=== PATIENT | female | born 1955 | race Caucasian/White ===

== ENCOUNTER → 2018-09-01 11:57 | Outpatient (CLI) | payer OTHER | END | disposition home or self-care (01) | LOC: D.US 11:57 | DX: I12.9 Hypertensive chronic kidney disease with stage 1 through stage 4 chronic kidney disease, or unspecified chronic kidney disease (principal); N18.2 Chronic kidney disease, stage 2 (mild); E11.9 Type 2 diabetes mellitus without complications; R80.9 Proteinuria, unspecified; Z68.37 Body mass index [BMI] 37.0-37.9, adult ==

== ENCOUNTER 2019-07-07 15:00 | Outpatient (CLI) | payer MEDICARE | END 2019-07-07 15:30 | disposition home or self-care (01) | LOC: D.MAMMO 15:00 | PROVIDERS: ATTEND Family Medicine | DX: Z12.31 Encounter for screening mammogram for malignant neoplasm of breast (principal) ==

== ENCOUNTER → 2019-09-23 08:30 | Outpatient (CLI) | payer MEDICARE ==
--- NOTE | 2019-09-23 09:39 | NUR ---
TIME OUT PERFORMED @ [address] FORRESTER & AMPARO KELLY RTR. PATIENT, , & PROCEDURE VERIFIED
== END | disposition home or self-care (01) ==
LOC: D.RAD 08:30 → D.MRI 10:00
PROVIDERS: ATTEND Clinical Nurse Specialist Family Health
DX: M25.511 Pain in right shoulder (principal)

== ENCOUNTER → 2019-09-28 16:43 | Outpatient (CLI) | payer MEDICARE | END | disposition home or self-care (01) | LOC: D.LABREF 16:43 | PROVIDERS: ATTEND Orthopaedic Surgery | DX: M19.011 Primary osteoarthritis, right shoulder (principal); A49.02 Methicillin resistant Staphylococcus aureus infection, unspecified site ==

== ENCOUNTER 2019-09-30 15:11 | Inpatient (IN) | payer MEDICARE ==
[~2019-09-30] VITALS: Ht 152.4 cm; Wt 76.8 kg
[2019-10-22 10:44] LABS: BASOPHILS 0.4 % (0-2); EOSINOPHILS 2.5 % (0-7); HEMOGLOBIN 15.6 g/dL (12-16); IMMATURE GRANULOCYTES 0.2 % (0-5); LYMPHOCYTES 31.8 % (15-50); MCH 31.1 pg (26.0-34.0); MCHC 33.9 g/dL (31.0-37.0); MCV 91.6 fL (80.0-100.0); MEAN PLATELET VOLUME 10.4 fL (7.4-10.4); MONOCYTES 8.4 % (2-11); NEUTROPHILS 56.7 % (40-80); PLATELET COUNT 312 10x3/uL (130-400); RBC 5.02 10x6/uL (4.00-5.40); RDW 12.9 % (11.5-14.5); WBC 8.5 10x3/uL (4.8-10.8)
[2019-10-22 10:46] LABS: ANION GAP 10.8 mmol/L (8-16); CALCIUM 9.1 mg/dL (8.5-10.1); CARBON DIOXIDE 32.1 mmol/L (21.0-32.0); CREATININE - SERUM 0.9 mg/dL (0.6-1.3); POTASSIUM - SERUM 3.9 mmol/L (3.5-5.1)
[2019-10-22 10:47] LABS: APTT 23.8 SECONDS (22.8-39.4); INR 0.91 (0.85-1.17); PROTIME 12.2 SECONDS (11.6-15.0)
[2019-10-22 11:43] LABS: APPEARANCE CLEAR (CLEAR); BILIRUBIN NEGATIVE (NEGATIVE); COLOR YELLOW (YELLOW); GLUCOSE 1000 mg/dL (NEGATIVE); KETONE NEGATIVE (NEGATIVE); NITRITE NEGATIVE (NEGATIVE); PROTEIN NEGATIVE (NEGATIVE); SPECIFIC GRAVITY 1.015 (1.005-1.020); UROBILINOGEN NORMAL (NORMAL); WHITE CELLS - URINE OCC /hpf (NEGATIVE)
[2019-10-22 11:44] LABS: BACTERIA FEW /hpf (NEGATIVE); EPITHELIAL CELLS OCC /hpf (0-5)
[2019-10-22] MEDS ORDERED: ULTRAM50 MG (12:06)
[2019-10-22] MEDS ORDERED: FLUTICASONE PRO16 GM (12:07)
[2019-10-22] MEDS ORDERED: GLUCOPHAGE1000 MG PO (12:08)
[2019-10-22] MEDS ORDERED: CYCLOBENZAPRINE5 MG (12:08)
[2019-10-22] MEDS ORDERED: SINGULAIR5 MG (12:08)
[2019-10-22] MEDS ORDERED: HYDROCHLOROTHIA25 MG (12:09)
[2019-10-22] MEDS ORDERED: PROAIR INHALER (12:10)
[2019-10-22] MEDS ORDERED: PROBIOTIC BLEN1 EACH (12:10)
[2019-10-22] MEDS ORDERED: [UNRECOGNIZED DRUG - OTHER] (12:12)
[2019-10-22] MEDS ORDERED: [UNRECOGNIZED DRUG - OTHER] (12:13)
[2019-10-22] MEDS ORDERED: [UNRECOGNIZED DRUG - OTHER] (12:13)
[2019-10-22] MEDS ORDERED: [UNRECOGNIZED DRUG - OTHER] (12:14)
[2019-10-22] MEDS ORDERED: MAGNESIUM (12:16)
[2019-10-22] MEDS ORDERED: VITAMIN D31000 UNIT (12:17)
[2019-10-22] MEDS ORDERED: AZELASTINE (12:18)
[2019-10-22] MEDS ORDERED: THYROID SUPPORT (12:18)
[2019-10-22] MEDS ORDERED: ADVANCED JOINT (12:19)
[2019-10-22] MEDS ORDERED: [UNRECOGNIZED DRUG - OTHER] (12:21)
[2019-10-22] MEDS ORDERED: [UNRECOGNIZED DRUG - OTHER] (12:22)
[2019-10-26] VITALS (12 sets, daily range): BP systolic 121–176; BP diastolic 62–88; Ht 152.4 cm; Wt 76.8 kg
[2019-10-26] MEDS ORDERED: FARXIGA10 MG PO (08:29)
[2019-10-26] MEDS ORDERED: ARTHROTEC EC 71 EACH PO (08:34)
--- NOTE | 2019-10-26 19:15 | NUR ---
BEDSIDE REPORT RECEIVED. PATIENT ALERT AND ORIENTED. HOB ELEVATED TO 30 DEGREE ANGLE. RIGHT ARM IN SLING WITH DRESSING TO THE RIGHT SHOULDER THAT IS CLEAN DRY AND INTACT. PATIENT CAN MOVE FINGERS. RIGHT HAND DIGITS ARM WARM AND CAPILLARY REFILL ARE LESS THAN THREE SECONDS. PATIENT DENIES PAIN AT THIS TIME. HAS LEFT HAND IV THAT IS INFUSING 1/2 NS @ 75. SPOKE WITH PATIENT ABOUT PLAN OF CARE DURING SHIFT. PATIENT VERBALIZES UNDERSTANDING. DENIES FURTHER NEEDS. HAS CALL LIGHT IN REACH. CPOC.
--- NOTE | 2019-10-26 21:50 | NUR ---
REQUESTS PRN PAIN MEDICINE WITH HS MEDICATIONS FOR PAIN IN RIGHT SHOULDER. PATIENT RATES 5/10 AT THIS TIME. CPOC.
[2019-10-27 00:30] VITALS: BP 140/67
--- NOTE | 2019-10-27 01:00 | NUR ---
MEDICATED PATIENT WITH TORADOL IV PER ORDER FOR PAIN RATING OF 6/10. PATIENT DENIES FURTHER NEEDS AT THIS TIME. CPOC.
[2019-10-27 05:30] VITALS: BP 152/77
--- NOTE | 2019-10-27 05:46 | NUR ---
ADMINISTERING PRN NORCO TO PATIENT. PILL BROKE WHILE OPENING AND HALF FELL ON FLOOR. CALLED ANAY MERLOS IN ROOM AND SHOWED HER AND WASTED IN THE SHARPS CONTAINER IN PATIENT ROOM. THEN WASTED IN PYXIS APPROPRIATELY BEFORE PULLING NEW DOSE. PATIENT TOOK AND TOLERATED WELL. NO FURTHER NEEDS AT THIS TIME. CPOC.
[2019-10-27 06:08] LABS: HEMATOCRIT 38.7 % (36.0-48.0); HEMOGLOBIN 12.4 g/dL (12-16); MCH 29.7 pg (26.0-34.0); MCV 92.6 fL (80.0-100.0); MEAN PLATELET VOLUME 10.7 fL (7.4-10.4); RBC 4.18 10x6/uL (4.00-5.40); RDW 13.2 % (11.5-14.5); WBC 9.6 10x3/uL (4.8-10.8)
--- NOTE | 2019-10-27 06:19 | NUR ---
I have reviewed this patient and I concur with the Shift Assessment completed by the Licensed Practical Nurse today this shift.
[2019-10-27] MEDS ORDERED: HYDROCODON-ACE1 EA10 PO (08:38)
[2019-10-27 09:23] VITALS: BP 132/73
--- NOTE | 2019-10-27 10:52 | NUR ---
PATIENT RECIEVED DC ORDERS AND PRESCRIPTION. VERBALIZED UNDERSTANDING. DRESSING CHANGED TO RIGH SHOULDER AND INCISION CDI WITH YANIV. NO DRAINAGE AT THIS TIME. EXTRA DRESSING GIVEN PER ORDERS TO CHANGE IN 7 DAYS. NO QUESTIONS AT THIS TIME. IV REMOVED WITH CATH TIP INTACT. CALL LIGHT WITHIN REACH. WAITING FOR WC FOR DC.
--- NOTE | 2019-10-28 17:54 | OP ---
PATIENT NAME: MILO LANDRUM MEDICAL RECORD: [id number] :53 LOCATION:[id number] ADMISSION DATE:10/26/19 SURGEON: ASH BLAKE MD DATE OF OPERATION: 10/26/2019 PREOPERATIVE DIAGNOSIS: Chronic rotator cuff arthropathy of the right shoulder. POSTOPERATIVE DIAGNOSIS: Chronic rotator cuff arthropathy of the right shoulder. PROCEDURE: Reverse total shoulder arthroplasty of the right shoulder. SURGEON: Ash Blake MD DATABASE COORDINATOR: NERY Moreno INTRAOPERATIVE COMPLICATIONS: None. 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 IMPLANTS USED: Tornier reverse total shoulder arthroplasty system with a standard glenosphere standard baseplate 25 mm, glenosphere 36-mm, standard PTC humeral stem size 4B with 135 angle, short stem reverse tray standard as well as a 36 x 6 mm insert from the Tornier system. ESTIMATED BLOOD LOSS: 50 cc. INTRAOPERATIVE COMPLICATIONS: None. OPERATIVE SUMMARY IN DETAIL: After obtaining the appropriate preoperative orthopedic surgery consent as well as anesthetic consent, the patient was brought to the operating room and placed on table in supine position. After general laryngeal mask airway was administered, the patient was placed in the beach chair position. All pressure points were well padded. She was held firmly to the arm to the operating table using the vacuum pack suction system. The shoulder and head were positioned for ultimate protection as always. At this point, the appropriate timeout was done. Right upper extremity was then prepped and draped in routine sterile fashion. The arm was held in Arthrex Trimano arm holding device. Deltopectoral incision was taken down to the clavipectoral fascia. The cephalic vein was identified and protected through the case. Clavipectoral fascia was incised. Conjoined tendon was retracted gently as the deltoid was retracted laterally with a brown retractor. Subscapularis was taken off the rotator cuff tearing as above was noted. The humeral head was then dislocated into the incision. Having completed this, the humeral head was cut using the humeral head cutting guide from the Tornier reverse total shoulder system. Serial and sequential reaming and broaching were done for a stem size 4. Stem was put into place. With the proximal humeral cut guide screwed into place, attention was then turned to the glenoid. With full exposure of the glenoid, circumferential labrectomy was followed by placing the guide pin. This was then followed by reaming and preparation for the baseplate. Appropriate measurements were taken and a size 30 central screw was then secured and the baseplate was then secured nicely with excellent fit and fill. Peripheral screws were used using compression and locking screws. The OPERATIVE REPORT [id number] MILO LANDRUM peripheral clear out tool was then utilized and the glenosphere was put into place on the Lopes taper. It was tamped gently. Screwed tamped and screwed. It was in excellent position and placement. Having completed this, attention was then turned to the proximal humerus. The trial was undertaken and it was felt like the trials corresponding to the above implants were most appropriate. Trials were removed. The wound was irrigated and the final component was put in after it had been assembled on the back table. Polyethylene was likewise snapped into place. The shoulder was reduced, taken through range of motion and found to be stable in all planes. After irrigation, the shoulder was filled with a gram of vancomycin and gram of tobramycin. Subscapularis was then reapproximated to the lesser tuberosity and the rotator cuff was fixed as much as possible to try and complete the rotator cuff sparing reverse as much as possible. Good repair was found. It is of note that the patient's biceps was in very bad condition and when cut had already auto tenodesed. At this point, the wound was closed by Curtis Hu, with #1 Vicryl, 2-0 Vicryl and skin froilan. Sterile dressings were then applied. The patient was awakened and taken to the recovery room in stable condition. All final needle and sponge counts were correct. TRANSINT:[id number] Voice Confirmation ID: [id number] DOCUMENT ID: [id number] ASH BLAKE MD at 1754 CC: [id number] DICTATION DATE: 10/26/19 1221 ELECTRICAL INSTALLER: 10/26/192051 DIS IN 10/27/19 [id number] [place] [address]
== END 2019-10-27 11:00 | disposition home or self-care (01) | DRG 483 ==
LOC: D.SDCHOLD 10-26 07:00 → D.MS 10-26 07:00 → D.SDCHOLD 10-26 08:45 → D.MS 10-26 12:39
PROVIDERS: ADMIT Orthopaedic Surgery; ATTEND Orthopaedic Surgery
PROC: 0RRJ00Z Replacement of Right Shoulder Joint with Reverse Ball and Socket Synthetic Substitute, Open Approach (ICD-10-PCS; principal; 2019-10-26 09:30)
DX: M75.101 Unspecified rotator cuff tear or rupture of right shoulder, not specified as traumatic (principal); M19.90 Unspecified osteoarthritis, unspecified site; J45.909 Unspecified asthma, uncomplicated; E11.9 Type 2 diabetes mellitus without complications; K21.9 Gastro-esophageal reflux disease without esophagitis; I12.9 Hypertensive chronic kidney disease with stage 1 through stage 4 chronic kidney disease, or unspecified chronic kidney disease; E11.22 Type 2 diabetes mellitus with diabetic chronic kidney disease; N18.9 Chronic kidney disease, unspecified

== ENCOUNTER → 2019-10-12 10:44 | Outpatient (CLI) | payer MEDICARE | END | disposition home or self-care (01) | LOC: D.US 10:44 | PROVIDERS: ATTEND Nurse Practitioner Family | DX: N20.0 Calculus of kidney (principal); N18.2 Chronic kidney disease, stage 2 (mild); N28.1 Cyst of kidney, acquired; I10 Essential (primary) hypertension; R80.9 Proteinuria, unspecified; E11.9 Type 2 diabetes mellitus without complications ==